=== PATIENT | male | born 2000 | race Caucasian/White ===

== ENCOUNTER 2019-04-07 06:46 | Emergency (ER) | payer MEDICAID ==
[2019-04-07] MEDS ORDERED: LIDOCAINE 1%/EPINEPHRINE INJ 20 ML VIAL INJ ONE (07:27)
[2019-04-07] MEDS ORDERED: DIPH/PERTUSS(ACELL)/TETANUS VAC/PF 0.5 ML SYR (>=10YO) IM ONE (07:28)
--- NOTE | 2019-04-07 07:32 | ER Document Report ---
ED General - General Chief Complaint: Laceration Stated Complaint: LACERATION ON KNEE Time Seen by Provider: 04/07/19 07:24 Primary Care Provider: [facility] [Provider Group] - Follow up as needed TRAVEL OUTSIDE OF THE [place] IN LAST 30 DAYS: No - HPI Notes: Patient is a 18-year-old male that presents to the emergency department for chief complaint of right knee laceration. patient states around 4 AM this morning he dropped a hunting knife and cut the top of his right knee. He states he was sitting at home watching a movie messing around with a knife when he dropped it. He denies any self-harm or intentional laceration to his leg. Patient states the bleeding was stopped earlier which is why he waited to come in. The bleeding began again this morning. His last tetanus vaccine was greater than 5 years ago. He denies any numbness or weakness. Past Medical History: Negative Past Surgical History: Negative Social History: Occasional alcohol. Daily tobacco. Denies drug use. Family History: Reviewed and noncontributory for presenting illness Allergies: Reviewed, see documented allergy list. REVIEW OF SYSTEMS: CONSTITUTIONAL : No fever No chills No diaphoresis No recent illness EENT: No vision changes No congestion No sore throat CARDIOVASCULAR: No chest pain No palpitations RESPIRATORY: No shortness of breath No cough No difficulty breathing GASTROINTESTINAL: No abdominal pain No nausea No vomiting No diarrhea GENITOURINARY: No dysuria No hematuria No difficulty urinating MUSCULOSKELETAL: No back pain No leg pain No arm pain SKIN: No rashes Leg laceration LYMPHATIC: No swollen, enlarged glands. NEUROLOGICAL: No lightheadedness No headache No weakness No paresthesias PSYCHIATRIC: No anxiety No depression PHYSICAL EXAMINATION: Vital signs reviewed, nursing noted reviewed. GENERAL: Well-appearing, well-nourished and in no acute distress. HEAD: Atraumatic, normocephalic. EYES: Eyes appear normal, extraocular movements intact, sclera anicteric, conjunctiva are normal. ENT: nares patent, oropharynx clear without exudates. Moist mucous membranes. NECK: Normal range of motion, supple without lymphadenopathy LUNGS: Breath sounds clear to auscultation bilaterally and equal. No wheezes rales or rhonchi. HEART: Regular rate and rhythm without murmurs ABDOMEN: Soft, nontender, normoactive bowel sounds. No rebound, guarding, or rigidity. No masses appreciated. EXTREMITIES: Nontender, good range of motion, no pitting or edema. NEUROLOGICAL: No focal neurological deficits. Moves all extremities spontaneously Motor and sensory grossly intact on exam. PSYCH: Normal mood, normal affect. SKIN: Warm, Dry, normal turgor, 3.0 cm linear full-thickness laceration to anterior right thigh just proximal to the knee with gaping but no bleeding. No muscular or tendinous involvement. - Related Data Allergies/Adverse Reactions: No Known Allergies Allergy (Unverified 04/07/19 07:29) Past Medical History - Social History Smoking Status: Current Every Day Smoker Family History: Reviewed & Not Pertinent - Immunizations Immunizations up to date: Yes Hx Diphtheria, Pertussis, Tetanus Vaccination: Yes Physical Exam - Vital signs Vitals: Temp Pulse Resp BP Pulse Ox 98.4 F 113 H 18 125/67 100 04/07/19 06:47 04/07/19 06:47 04/07/19 06:47 04/07/19 06:47 04/07/19 06:47 Course - Re-evaluation Re-evalutation: 04/07/19 07:30 Vitals reviewed. Nursing notes reviewed. Patient's tetanus vaccine was updated. His laceration was repaired with stitches. He was counseled on wound care and follow-up. Stable at discharge. - Vital Signs Vital signs: Temp Pulse Resp BP Pulse Ox 98.4 F 113 H 18 125/67 100 04/07/19 06:47 04/07/19 06:47 04/07/19 06:47 04/07/19 06:47 04/07/19 06:47 Procedures - Laceration/Wound Repair Right Thigh Time completed: 08:02 Wound length (cm): 3.0 Wound's Depth, Shape: Linear Laceration pre-procedure: Sterile PPE donned, Sterile drapes applied, Shur-Clens applied Anesthetic type: 1% Lidocaine w/epi Volume Anesthetic (mLs): 3 Wound explored: Clean Irrigated w/ Saline (mLs): 250 Wound Repaired With: Sutures Suture Size/Type: 4:0, Nylon Number of Sutures: 4 Layer Closure?: No Post-procedure wound care: Sterile dressing applied Post-procedure NV exam normal: Yes Complications: No Discharge - Discharge Clinical Impression: Laceration of right thigh Qualifiers: Encounter type: initial encounter Qualified Code(s): S71.111A - Laceration without foreign body, right thigh, initial encounter Condition: Stable Disposition: HOME, SELF-CARE Instructions: Laceration Care ([facility]), Tetanus Immunization Given ([facility]) Additional Instructions: Please return to the emergency department if you have any worsening, or concern of your symptoms. Please return to the emergency department if you develop chest pain, difficulty breathing, severe abdominal pain, or ongoing vomiting. Please follow-up with your primary care physician in 2-3 days and any other recommended physicians. If prescribed, take all medications as directed. If you have any questions or concerns do not hesitate to return the emergency department for evaluation. Have your carline removed in 8-10 days Referrals: [facility] [Provider Group] - Follow up as needed
[2019-04-07 08:15] VITALS: BP 115/59
== END 2019-04-07 08:15 | disposition home or self-care (01) ==
LOC: ER 06:46
DX: S71.111D Laceration without foreign body, right thigh, subsequent encounter (principal); W26.0XXD Contact with knife, subsequent encounter; Y93.89 Activity, other specified; Y92.009 Unspecified place in unspecified non-institutional (private) residence as the place of occurrence of the external cause; F17.200 Nicotine dependence, unspecified, uncomplicated; Z23 Encounter for immunization
CPT/HCPCS: 99282; 90471; 90715; 12002; J3490